=== PATIENT | male | born 2000 | race Caucasian/White ===

== ENCOUNTER → 2020-12-19 | Outpatient (CLI) | payer OTHER ==
--- NOTE | 2020-12-20 08:15 | XR ---
EXAMINATION TYPE: XR abdomen 2V DATE OF EXAM: 12/19/2020 COMPARISON: NONE HISTORY: Pain bladder was instilled TECHNIQUE: Three view abdominal series FINDINGS: The osseous structures are intact. The bowel gas pattern is nonspecific. Lung bases are clear. IMPRESSION: 1. Nonspecific abdomen.
== END | disposition home or self-care (01) ==
LOC: RADXRYALE 17:01
PROVIDERS: ATTEND Physician Assistant Medical
DX: R19.5 Other fecal abnormalities (principal)
CPT/HCPCS: 74019